=== PATIENT | male | born 1980 | race Caucasian/White ===

== ENCOUNTER 2018-06-30 12:14 | Inpatient (IN) | payer SELFPAY ==
[~2018-06-30] VITALS: Ht 180.3 cm; Wt 83.9 kg
[2018-06-30] MEDS ORDERED: ALPR2TAB7 PO (12:35)
[2018-06-30] MEDS ORDERED: SERT50TA12 PO (12:35)
[2018-06-30] MEDS ORDERED: FENTANYL CITRATE 100 MCG/2 ML AMPUL IV ONE ×2 (12:45→14:00)
[2018-06-30] MEDS ORDERED: ONDANSETRON 4 MG/2 ML VIAL IV ONE (12:45)
[2018-06-30] MEDS ORDERED: IV NORMAL SALINE 1000 ML BAG IV ONE (12:45)
[2018-06-30] MEDS ORDERED: FENTANYL CITRATE 100 MCG/2 ML AMPUL ONE ×2 (12:48→14:13)
[2018-06-30] MEDS ORDERED: ONDANSETRON 4 MG/2 ML VIAL ONE (12:49)
[2018-06-30 12:50] LABS: *BLOOD, URINE NEGATIVE (NEGATIVE); *COLOR,URINE YELLOW (YELLOW); *KETONES,URINE TRACE (NEGATIVE); *PROTEIN,URINE TRACE (NEGATIVE); *UROBILINOGEN,URINE 0.2 E.U./dl (NORMAL); LEUKOCYTE ESTERASE ,URINE NEGATIVE (NEGATIVE); NITRITE, URINE NEGATIVE (NEGATIVE); PH,URINE 5.5 (5.0-8.0); UGLUCOSE NEGATIVE (NEGATIVE)
[2018-06-30 12:53] LABS: *BILIRUBIN,URIN 1+ (NEGATIVE); *CLARITY,URINE HAZY (CLEAR)
[2018-06-30 12:56] LABS: RBC,URINE 0-3 /HPF (0-3)
[2018-06-30 12:58] LABS: BACTERIA,URINE NONE SEEN /HPF (NONE SEEN); MUCUS,URINE MANY /LPF (0-FEW); SQUAMOUS EPITHELIAL CELL,UR FEW /HPF (NONE SEEN)
[2018-06-30 13:29] LABS: BASOPHILS % (AUTO) 0.5 % (0.0-2.0); EOSINOPHILS # (AUTO) 0.2 K/uL (0.0-0.7); EOSINOPHILS % (AUTO) 4.5 % (0.0-7.0); HEMATOCRIT 30.7 % (36.7-47.1); MEAN CORPUSCULAR HEMOGLOBIN 25.9 uug (23.8-33.4); MEAN CORPUSCULAR HGB CONC 32 g/dL (32.5-36.3); MEAN CORPUSCULAR VOLUME 79.8 fL (73.0-96.2); MONOCYTES # (AUTO) 0.6 K/uL (2.0-10.0); MONOCYTES % (AUTO) 13.1 % (0.0-11.0); NEUTROPHILS # (AUTO) 3.1 K/uL (1.8-8.9); NEUTROPHILS % (AUTO) 61.9 % (38.5-71.5); PLATELET COUNT (AUTO) 414 K/uL (152-348); RED BLOOD CELL COUNT(AUTO) 3.85 MIL/uL (4.06-5.63); WHITE BLOOD COUNT (AUTO) 4.9 K/uL (3.6-10.2)
[2018-06-30 13:33] LABS: CREATININE 0.7 mg/dL (0.6-1.3); POTASSIUM 3.5 mmol/L (3.5-5.1)
[2018-06-30 13:39] LABS: BILIRUBIN,DIRECT 0.1 mg/dL (0.0-0.2); BILIRUBIN,TOTAL 0.6 mg/dL (0.2-1.0); TOTAL PROTEIN, SERUM 7.1 g/dL (6.4-8.2)
[2018-06-30 15:29] LABS: IRON, SERUM 24 ug/dL (50-175)
[2018-06-30 15:46] LABS: *AMPHETAMINE, URINE NEGATIVE (NEGATIVE); *BARBITURATE, URINE NEGATIVE (NEGATIVE); *CANNABINOID, URINE NEGATIVE (NEGATIVE); *COCCAINE, URINE NEGATIVE (NEGATIVE); *OPIATE, URINE POSITIVE (NEGATIVE); *PHENCYCLIDINE SCREEN,URINE NEGATIVE (NEGATIVE)
[2018-06-30] MEDS ORDERED: MORPHINE SULFATE 4 MG/1 ML DISP.SYRIN IV PRN (16:15)
[2018-06-30] MEDS ORDERED: MORPHINE SULFATE 2 MG/1 ML DISP.SYRIN IV PRN (16:15)
[2018-06-30] MEDS ORDERED: ACETAMINOPHEN 650 MG SUPP.RECT RC PRN (16:15)
[2018-06-30 16:24] VITALS: BP 142/81
[2018-06-30] MEDS ORDERED: MAGNESIUM CITRATE 296 ML BOTTLE PO ONE (19:00)
[2018-06-30] MEDS ORDERED: GOLYTELY 4000 ML BOTTLE PO ONE (19:00)
[2018-06-30 20:08] VITALS: BP 130/82
[2018-06-30] MEDS: ONDANSETRON 4 MG/2 ML VIAL IV PRN (20:27)
[2018-06-30] MEDS: POTASSIUM CHLORIDE 20 MEQ in IV D5 1/2 NS 1000 ML 1,000 ML IV PRN (20:27)
[2018-06-30] MEDS: PANTOPRAZOLE SODIUM 40 MG VIAL IV SCH (21:17)
[2018-06-30] MEDS: LORAZEPAM 2 MG/1 ML VIAL IV PRN (21:17)
[2018-06-30] MEDS: MORPHINE SULFATE 4 MG/1 ML DISP.SYRIN IV PRN (21:37)
[2018-07-01] MEDS: MORPHINE SULFATE 4 MG/1 ML DISP.SYRIN IV PRN ×6 (00:44→20:14)
[2018-07-01] MEDS: ONDANSETRON 4 MG/2 ML VIAL IV PRN ×3 (02:29→17:35)
[2018-07-01] MEDS: LORAZEPAM 2 MG/1 ML VIAL IV PRN ×3 (02:29→17:32)
[2018-07-01 04:21] VITALS: BP 131/79
[2018-07-01] MEDS: diphenhydrAMINE 50 MG/1 ML VIAL IV PRN ×4 (04:33→23:49)
[2018-07-01] MEDS: PANTOPRAZOLE SODIUM 40 MG VIAL IV SCH ×2 (08:08→20:14)
[2018-07-01 08:27] LABS: BASOPHILS % (AUTO) 0.3 % (0.0-2.0); EOSINOPHILS # (AUTO) 0.3 K/uL (0.0-0.7); EOSINOPHILS % (AUTO) 6.1 % (0.0-7.0); HEMATOCRIT 28.3 % (36.7-47.1); HEMOGLOBIN 9.3 g/dL (12.5-16.3); LYMPHOCYTES % (AUTO) 22.7 % (20.5-51.5); MEAN CORPUSCULAR HEMOGLOBIN 25.5 uug (23.8-33.4); MEAN CORPUSCULAR HGB CONC 33 g/dL (32.5-36.3); MONOCYTES # (AUTO) 0.6 K/uL (2.0-10.0); NEUTROPHILS # (AUTO) 2.6 K/uL (1.8-8.9); NEUTROPHILS % (AUTO) 57.9 % (38.5-71.5); PLATELET COUNT (AUTO) 353 K/uL (152-348); RED BLOOD CELL COUNT(AUTO) 3.63 MIL/uL (4.06-5.63); WHITE BLOOD COUNT (AUTO) 4.4 K/uL (3.6-10.2)
[2018-07-01 08:49] LABS: BILIRUBIN,TOTAL 0.5 mg/dL (0.2-1.0); CREATININE 0.8 mg/dL (0.6-1.3); MAGNESIUM 2.2 mg/dL (1.8-2.4); PHOSPHOROUS 3.2 mg/dL (2.5-4.9); POTASSIUM 3.5 mmol/L (3.5-5.1); TOTAL PROTEIN, SERUM 6.7 g/dL (6.4-8.2)
[2018-07-01 11:50] VITALS: BP 140/83
[2018-07-01] MEDS ORDERED: MIDAZOLAM HCL 2 MG/2 ML VIAL ONE (15:29)
[2018-07-01 16:57] VITALS: BP 130/74
[2018-07-01] MEDS: POTASSIUM CHLORIDE 20 MEQ in IV D5 1/2 NS 1000 ML 1,000 ML IV PRN (20:30)
[2018-07-01 20:31] VITALS: BP 105/55
[2018-07-01] MEDS: HYDROMORPHONE 2 MG/1 ML DISP.SYRIN IV PRN (23:49)
[2018-07-02] MEDS: diphenhydrAMINE 50 MG/1 ML VIAL IV PRN ×3 (00:28→07:44)
[2018-07-02] MEDS: HYDROMORPHONE 2 MG/1 ML DISP.SYRIN IV PRN ×2 (04:22→07:44)
[2018-07-02] MEDS: ONDANSETRON 4 MG/2 ML VIAL IV PRN ×2 (04:29→08:24)
[2018-07-02] MEDS: LORAZEPAM 2 MG/1 ML VIAL IV PRN ×2 (04:29→08:25)
[2018-07-02 06:31] VITALS: BP 100/73
[2018-07-02 07:25] LABS: BASOPHILS % (AUTO) 0.2 % (0.0-2.0); HEMATOCRIT 30.4 % (36.7-47.1); LYMPHOCYTES # (AUTO) 0.7 K/uL (20.0-40.0); LYMPHOCYTES % (AUTO) 22.8 % (20.5-51.5); MEAN CORPUSCULAR HEMOGLOBIN 25.7 uug (23.8-33.4); MEAN CORPUSCULAR HGB CONC 33 g/dL (32.5-36.3); MEAN CORPUSCULAR VOLUME 78.3 fL (73.0-96.2); MONOCYTES # (AUTO) 0.5 K/uL (2.0-10.0); MONOCYTES % (AUTO) 18.6 % (0.0-11.0); NEUTROPHILS # (AUTO) 1.7 K/uL (1.8-8.9); NEUTROPHILS % (AUTO) 58.4 % (38.5-71.5); PLATELET COUNT (AUTO) 373 K/uL (152-348); RED BLOOD CELL COUNT(AUTO) 3.88 MIL/uL (4.06-5.63); WHITE BLOOD COUNT (AUTO) 2.9 K/uL (3.6-10.2)
[2018-07-02 07:35] LABS: CREATININE 0.9 mg/dL (0.6-1.3)
[2018-07-02] MEDS: PANTOPRAZOLE SODIUM 40 MG VIAL IV SCH ×2 (08:25→09:00)
[2018-07-02] MEDS ORDERED: HYDROMORPHONE 2 MG/1 ML DISP.SYRIN IM ONE (09:30)
[2018-07-02] MEDS ORDERED: diphenhydrAMINE 50 MG/1 ML VIAL IM ONE (09:30)
[2018-07-02 09:39] LABS: NEUTROPHILS % (MANUAL) 60 % (42-75)
[2018-07-02 09:40] LABS: LYMPHOCYTES % (MANUAL) 25 % (20-40); MONOCYTES % (MANUAL) 15 % (2-10)
[2018-07-02 11:39] VITALS: BP 121/67
[2018-07-02] MEDS: LORAZEPAM 0.5 MG TABLET PO PRN ×2 (12:14→13:13)
[2018-07-02] MEDS: ONDANSETRON HCL 4 MG TABLET PO PRN ×2 (12:14→13:13)
[2018-07-02] MEDS ORDERED: DEXAMETHASONE SOD PHOSPHATE 4 MG INJ IV ONE (13:34)
[2018-07-02] MEDS ORDERED: PROPOFOL 200 MG/20 ML BOTTLE IV ONE (13:34)
[2018-07-02] MEDS ORDERED: diphenhydrAMINE 50 MG/1 ML VIAL IV ONE (13:34)
[2018-07-02] MEDS ORDERED: PANTOPRAZOLE SODIUM 40 MG TABLET.DR PO SCH (17:00)
== END 2018-07-02 13:35 | disposition home or self-care (01) | DRG 378 ==
LOC: ER 12:14 → MED 15:29
PROVIDERS: ADMIT Internal Medicine; ATTEND Internal Medicine
PROC: 05JY3ZZ Inspection of Upper Vein, Percutaneous Approach (ICD-10-PCS; principal; 2018-06-30)
PROC: 0DB78ZX Excision of Stomach, Pylorus, Via Natural or Artificial Opening Endoscopic, Diagnostic (ICD-10-PCS; 2018-07-01 14:45)
PROC: 0DBM8ZX Excision of Descending Colon, Via Natural or Artificial Opening Endoscopic, Diagnostic (ICD-10-PCS; 2018-07-01 14:45)
DX: K25.4 Chronic or unspecified gastric ulcer with hemorrhage (principal); D62 Acute posthemorrhagic anemia; K63.5 Polyp of colon; Z80.0 Family history of malignant neoplasm of digestive organs; Z84.1 Family history of disorders of kidney and ureter; R19.7 Diarrhea, unspecified; F41.9 Anxiety disorder, unspecified
CPT/HCPCS: 36415; 70030-TC; 71045; 76700; 80307; 80346; 80361; 83550; 83690; 83735; 84100; 85025; 85730; 86140; 86850; 86900; 86901; 93005; A4217; A4663; C9113; J1100; J1170; J1200; J2060; J2250; J2270; J2405; J3010; J3480; J3490; J7030; Q0162